=== PATIENT | male | born 1985 | race Caucasian/White ===

== ENCOUNTER 2018-03-31 01:23 | Emergency (ER) | payer OTHER, BC ==
[2018-03-31] MEDS: FIORICET TAB PO (01:45)
[2018-03-31] MEDS: KETOROLAC 60 MG/2 ML VIAL (J1885) IM (02:50)
== END 2018-03-31 03:30 | disposition home or self-care (01) ==
LOC: M ED 01:23
DX: G43.909 Migraine, unspecified, not intractable, without status migrainosus (principal)
CPT/HCPCS: J1885